=== PATIENT | male | born 2000 | race Caucasian/White ===

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

== ENCOUNTER 2022-11-14 19:52 | Emergency (ER) | payer SELFPAY ==
[2022-11-14] MEDS ORDERED: Sodium Chloride 0.9% 2.5 ML Syringe FLUSH PRN (20:19)
[2022-11-14] MEDS ORDERED: Sodium Chloride 0.9% 10 ML Syringe FLUSH PRN (20:19)
[2022-11-14 21:12] LABS: BLOOD UREA NITROGEN,BUN 11 mg/dL (7.0-18.0); CARBON DIOXIDE,CO2 28.7 mmol/L (21.0-32.0); CHLORIDE,CL 103 mmol/L (98-107); GLUCOSE RANDOM 101 mg/dL (74-106); POTASSIUM,K 4.2 mmol/L (3.5-5.1); SODIUM,NA 141 mmol/L (136-148)
[2022-11-14 21:13] LABS: ESTIMATED GFR 97 mL/min (>60)
[2022-11-15 02:54] LABS: HIV12 AG/AB 4TH GEN W/REFLEX 0.1 INDEX (<1.0)
== END 2022-11-15 05:43 ==
LOC: MW.ED 19:52
DX: R21 Rash and other nonspecific skin eruption (principal)
CPT/HCPCS: 36415; 71046; 80053; 83735; 85025; 85610; 85652; 85730; 86140; 87389; 99284; J3490; 99285

== ENCOUNTER 2025-02-23 16:32 | Emergency (ER) | payer OTHER ==
[2025-02-23] MEDS: Alum Hydrox/Mag Hydrox/Simeth 15 ML, Lidocaine 2% 5 ML PO ONE (16:56)
[2025-02-23 16:58] LABS: BASOPHILS ABSOLUTE AUTO 0.04 K/uL (0.00-0.20); BASOPHILS PERCENT AUTO 0.4 % (0.0-1.0); EOSINOPHILS ABSOLUTE AUTO 0.19 K/uL (0.00-0.45); EOSINOPHILS PERCENT AUTO 2.0 % (0.0-6.0); IMMATURE GRAN ABSOLUTE AUTO 0.03 K/uL (0.00-0.05); IMMATURE GRAN PERCENT AUTO 0.3 % (0.0-0.4); LYMPHOCYTES ABSOLUTE AUTO 2.99 K/uL (1.00-4.80); LYMPHOCYTES PERCENT AUTO 32.0 % (24.0-44.0); MEAN PLATELET VOLUME 9.8 fL (9.4-12.4); MONOCYTES ABSOLUTE AUTO 0.47 K/uL (0.00-0.80); MONOCYTES PERCENT AUTO 5.0 % (0.0-8.0); NEUTROPHILS ABSOLUTE AUTO 5.63 K/uL (1.80-7.70); NEUTROPHILS PERCENT AUTO 60.3 % (41.0-71.0); NRBC ABSOLUTE 0.00 K/uL (0.00-0.02); NRBC PERCENT 0.0 /100WBC (0.0-0.2); PLATELET COUNT,PLT 296 K/uL (150-400); RED BLOOD CELL COUNT 5.35 M/uL (4.52-5.90); WHITE BLOOD CELL COUNT,WBC 9.35 K/uL (3.9-11.3)
[2025-02-23 17:37] LABS: A/G RATIO 1.3 (0.9-1.6); ALANINE AMINOTRANSFERASE,ALT 58 IU/L (14-63); ASPARTATE AMNIOTRANSFERASE,AST 24 IU/L (15-37); BILIRUBIN TOTAL 1.0 mg/dL (0.2-1.0); BLOOD UREA NITROGEN,BUN 9 mg/dL (7.0-18.0); CARBON DIOXIDE,CO2 23.6 mmol/L (21.0-32.0); CHLORIDE,CL 103 mmol/L (98-107); CREATININE 1.1 mg/dL (0.8-1.3); EST CRCL DRUG DOSING (CG) 115.01 mL/min; GLUCOSE RANDOM 98 mg/dL (74-106); POTASSIUM,K 3.3 mmol/L (3.5-5.1); PROTEIN TOTAL,TP 7.6 g/dL (6.4-8.2); SODIUM,NA 137 mmol/L (136-148)
[2025-02-23 17:38] LABS: ESTIMATED GFR 95 mL/min (>60)
== END 2025-02-23 22:39 | disposition home or self-care (01) ==
LOC: MW.ED 16:32
DX: R07.9 Chest pain, unspecified (principal); Z79.899 Other long term (current) drug therapy
CPT/HCPCS: 36415; 71045; 80053; 84484; 85025; 93005; 99285; A9270; 93010; 99284